=== PATIENT | female | born 1990 | race Caucasian/White ===

== ENCOUNTER 2021-04-12 14:30 | Emergency (ER) | payer OTHER ==
[~2021-04-12] VITALS: Ht 170.2 cm; Wt 90.7 kg
[2021-04-12 14:38] VITALS: BP 193/129
[2021-04-12] MEDS ORDERED: NORCO5 PO (16:10)
== END 2021-04-12 16:24 | disposition home or self-care (01) ==
LOC: ER 14:30
DX: M25.511 Pain in right shoulder (principal); F17.200 Nicotine dependence, unspecified, uncomplicated; N80.9 Endometriosis, unspecified; Z90.710 Acquired absence of both cervix and uterus; Z88.0 Allergy status to penicillin; Z88.8 Allergy status to other drugs, medicaments and biological substances